=== PATIENT | female | born 1980 | race Two or more races ===

== ENCOUNTER 2018-04-16 20:42 | Emergency (ER) | payer SELFPAY ==
[~2018-04-16] VITALS: Ht 167.6 cm; Wt 61.2 kg
[~2018-04-16 20:42] MED LIST: ACET-704 PO; IBUP-1060 PO
[2018-04-16 21:38] VITALS: BP 150/89
[2018-04-16] MEDS ORDERED: HYDROcodone/APAP 5/325MG 1 TAB TABLET PO ONE (22:30)
--- NOTE | 2018-04-16 23:10 | RAD ---
Examination: HAND RIGHT 3V History: Injury, pain to 2nd and 3rd digit Comparison/Correlation: None Findings: Three-view right hand x-ray exam was performed. Joint spaces are normal. No acute fracture or bone destruction. Soft tissues are unremarkable. Minimal spurring involves the second digit proximal phalangeal base. Impression: No acute process. Unremarkable exam. Electronically signed by: Allan Castaneda MD (04/16/2018 11:06 PM) [facility]
[2018-04-16] MEDS ORDERED: ASPI325T8 PO (23:34)
[2018-04-16] MEDS ORDERED: HYDR-3164 PO (23:34)
--- NOTE | 2018-04-16 23:35 | PHYS DOC ---
Past Medical History Past Medical History: Other Additional Past Medical Histor: HAND PROBLEM-Raynaud's disease Alcohol Use: None Drug Use: None Adult General Chief Complaint Chief Complaint: FINGER INJURY HPI HPI Patient is a 38 year old female who presents with fingers pain. Pt was trying to go down her basement when she tripped and fell hitting her R fingers against the wall early this evening (04/16/2018). She mentions it is most pain in her nail beds of 2nd and 3rd digits of R hand. She rates her pain as 10/10. The pain is localized to her nail beds and finger pads. Does not radiate anywhere. Pt also reports having a hand problem that is likely to be Raynaud's syndrome. Her fingers turn purple and become tingling when she exposes to cold weather and get better she warms them up. Pt states that her PCP prescribes her naproxen and gabapentin for her hand condition. Denies any dizziness. Denies LOC and having pain at any other locations. Review of Systems Review of Systems Constitutional: Denies fever or chills [] Eyes: Denies change in visual acuity, redness, or eye pain [] HENT: Denies nasal congestion or sore throat [] Respiratory: Denies cough or shortness of breath [] Cardiovascular: no chest pain or palpitation. GI: Denies abdominal pain, nausea, vomiting, bloody stools or diarrhea [] : Denies dysuria or hematuria [] Musculoskeletal: Denies back pain or joint pain [] Integument: Denies rash or skin lesions [] Neurologic: Denies headache, focal weakness or sensory changes [] Complete systems were reviewed and found to be within normal limits, except as documented in this note. Current Medications Current Medications Current Medications Medications (Trade) Dose Ordered Sig/Gege Start Time Stop Time Status Last Admin Dose Admin Acetaminophen/ Hydrocodone Bitart (Lortab 5/325) 1 tab 1X ONCE 04/16/18 22:30 04/16/18 22:31 DC 04/16/18 22:51 1 TAB Aspirin (Arjun Aspirin) 325 mg 1X ONCE 04/16/18 23:45 04/16/18 23:46 UNV Allergies Allergies Allergies Coded Allergies Type Severity Reaction Last Updated Verified No Known Drug Allergies 12/30/14 No Physical Exam Physical Exam Constitutional: Well developed, well nourished, no acute distress, non-toxic appearance. [] HENT: Normocephalic, atraumatic, bilateral external ears normal, oropharynx moist, no oral exudates, nose normal. [] Eyes: PERRL, EOMI, conjunctiva normal, no discharge. [] Neck: Normal range of motion, no tenderness, supple, no stridor. [] Cardiovascular:Heart rate regular rhythm, no murmur [] Lungs & Thorax: Bilateral breath sounds clear to auscultation [] Abdomen: Bowel sounds normal, soft, no tenderness, no masses, no pulsatile masses. [] Skin: Warm, dry, no erythema, no rash. [] Back: No tenderness, no CVA tenderness. [] Extremities: tenderness on palpation of finger pads of 2nd and 3rd digits of R hand, no cyanosis, no clubbing, ROM intact, no edema. [] Neurologic: Alert and oriented X 3, normal motor function, normal sensory function, no focal deficits noted. [] Psychologic: Affect normal, judgement normal, mood normal. [] Current Patient Data Vital Signs Vital Signs Date Time Temp Pulse Resp B/P (MAP) Pulse Ox O2 Delivery O2 Flow Rate FiO2 04/16/18 21:38 97.6 76 16 150/89 (109) 100 Room Air 97.6 EKG EKG [] Radiology/Procedures Radiology/Procedures [] Course & Med Decision Making Course & Med Decision Making Pertinent Labs and Imaging studies reviewed. (See chart for details) [] Dragon Disclaimer Dragon Disclaimer This electronic medical record was generated, in whole or in part, using a voice recognition dictation system. Departure Departure Impression: Primary Impression: Hand pain, right Disposition: 01 HOME, SELF-CARE Condition: STABLE Referrals: PENG EVANGELISTA (PCP) Patient Instructions: Raynaud's Syndrome Scripts Aspirin (ASPIRIN) 325 Mg Tablet 1 TAB PO DAILY, #30 TAB 0 Refills Prov: NATHAN ALVAREZ DO 04/16/18 Hydrocodone/Apap 5-325 (NORCO 5-325 TABLET) 1 Each Tablet 1 TAB PO PRN Q6HRS PRN for PAIN, #10 TAB 0 Refills Prov: NATHAN ALVAREZ DO 04/16/18 NATHAN ALVAREZ DO Apr 16, 2018 23:34
[2018-04-16] MEDS ORDERED: ASPIRIN 325 MG TABLET PO ONE (23:55)
== END 2018-04-16 23:52 | disposition home or self-care (01) ==
LOC: ER 20:42
DX: M79.641 Pain in right hand (principal); G89.11 Acute pain due to trauma; I73.00 Raynaud's syndrome without gangrene; W01.198A Fall on same level from slipping, tripping and stumbling with subsequent striking against other object, initial encounter; Y93.89 Activity, other specified; Y92.89 Other specified places as the place of occurrence of the external cause; Y99.8 Other external cause status
CPT/HCPCS: 73130; 99283